=== PATIENT | male | born 1970 | race Caucasian/White ===

== ENCOUNTER 2025-05-03 14:55 | Emergency (ER) | payer OTHER, SELFPAY ==
[2025-05-03 14:57] VITALS: BP 137/86; PULSE 81; RESP 16; TEMP 36.9; O2SAT 94
--- NOTE | 2025-05-03 14:58 | W.ED.GENAD ---
Discharge Plan Disposition Patient Disposition: Home Discharge Details Clinical Impression: Local reaction to hymenoptera sting ED Provider: Song Roth Home Meds and New Rx's Prescriptions: Continued aspirin 325 mg capsule 325 mg PO DAILY Patient Comments: Takes d/t prior stroke 05/03/25 cholecalciferol (vitamin D3) 50 mcg (2,000 unit) capsule 2,000 unit PO DAILY omega 8-awd-uxj-fish oil [Fish Oil] 1,000 (120-180) mg capsule 1 cap PO DAILY mecobalamin (vitamin B12) 2,500 mcg tablet,chewable 2,500 mcg PO DAILY multivitamin [Daily Multi-Vitamin] Tablet 1 tab PO DAILY ascorbic acid (vitamin C) [Vitamin C] 1,000 mg tablet 1 g PO DAILY melatonin 5 mg capsule 5 mg PO QHS rosuvastatin [Crestor] 20 mg tablet 20 mg PO DAILY epinephrine [EpiPen] 0.3 mg/0.3 mL auto-injector 0.3 ml subcut ONCE Patient Comments: Pt states he does not have currently; never picked up script 05/03/25 Rx Instructions: as a single dose; may repeat once diphenhydramine HCl [Benadryl] 25 mg capsule 25 mg PO ONCE Discharge Instructions Additional Instructions: You are seen in the emergency department following your bee stings.You have local site reactions. You received steroids. Please return to the emergency department if you develop shortness of breath nausea vomiting or any significant rash. HPI General Date/Time Provider Initiated Documentation: 05/03/25 14:58. HPI Narrative: MDM This is an overall quite well-appearing normothermic and not tachycardic 54-year-old male with local site reactions to hymenoptera stings for which patient will receive oral prednisone following discussion of risks and benefits. Specifically patient I discussed small risk of GI bleed psychosis and ineffectiveness. He had no airway involvement no posterior oropharynx swelling no nausea nor vomiting no extensive rash to suggest anaphylaxis so no indication for epinephrine. No pain out of proportion to suggest necrotizing soft tissue infection. No significant erythema to suggest cellulitis. No fluctuance to suggest abscess. Patient and I discussed that he should return to the emergency department if he developed any nausea vomiting difficulty breathing or shortness of breath. He does have a prescription for epinephrine. Given that his local site reactions were not consistent with anaphylaxis I did not feel he required another prescription for epinephrine. He understood his return indications and was discharged with an empiric trial of expectant outpatient management. He had also taken 100 mg of diphenhydramine. We discussed that he should take 25 mg of diphenhydramine every 6 hours. 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 He does not appear drowsy. HPI This is a xilfm-lzeu-[id number] patient with multiple bee stings. The patient experienced bee stings on the back of his right knee, palm, and forearm less than an hour ago while lifting a tarp in his backyard. He reports no difficulty in breathing, throat swelling, nausea, or vomiting. The patient is right-handed and does not have diabetes. He has no history of steroid use. He has a history of anaphylaxis to bee stings, with the most recent episode occurring 3 years ago when he was stung on the middle finger, causing significant swelling of his hand. At that time, he did not receive epinephrine but took Benadryl, which alleviated the swelling after a day. Exam General: Well-appearing in no acute distress speaking in complete sentences. Head: Normocephalic, atraumatic. Eye: Extraocular eye movements intact. No conjunctival injection. No scleral icterus. Ear, nose, mouth, throat: Grossly normal inspection. Normal voice, handling secretions normally. Neck: Trachea midline. Cardiovascular: Well-perfused distal extremities. Regular rate and rhythm Respiratory: Nonlabored respiration. Clear lungs bilaterally. No wheezes. Gastrointestinal: Nondistended abdomen. Musculoskeletal: No edema. Moving all 4 extremities spontaneously. Skin: On the palmar aspect of the right hand, ulnar side there is a 4 x 4 centimeter mildly swollen area consistent with recent sting. On the dorsal surface of the proximal forearm there is a second approximately 3 x 3 cm mildly swollen erythematous area. On the posterior aspect of the right knee in the popliteal fossa there is another 4 x 4 centimeter mildly swollen area. Neurologic: Alert and appropriate, no apparent acute deficits. Related Data Home Medications ?Medication ?Instructions ?Recorded ?Confirmed ascorbic acid (vitamin C) 1,000 mg 1 g PO DAILY 05/03/25 05/03/25 tablet (Vitamin C) aspirin 325 mg capsule 325 mg PO DAILY 05/03/25 05/03/25 cholecalciferol (vitamin D3) 50 2,000 unit PO DAILY 05/03/25 05/03/25 mcg (2,000 unit) capsule diphenhydramine HCl 25 mg capsule 25 mg PO ONCE 05/03/25 05/03/25 (Benadryl) epinephrine 0.3 mg/0.3 mL 0.3 ml subcut ONCE 05/03/25 05/03/25 injection, auto-injector (EpiPen) mecobalamin (vitamin B12) 2,500 2,500 mcg PO DAILY 05/03/25 05/03/25 mcg chewable tablet melatonin 5 mg capsule 5 mg PO QHS 05/03/25 05/03/25 multivitamin (Daily Multi-Vitamin 1 tab PO DAILY 05/03/25 05/03/25 tablet) omega 4-twr-syq-fish oil 1,000 mg 1 cap PO DAILY 05/03/25 05/03/25 (120 mg-180 mg) capsule (Fish Oil) rosuvastatin 20 mg tablet (Crestor) 20 mg PO DAILY 05/03/25 05/03/25 Allergies Allergy/AdvReac Type Severity Reaction Status Date / Time bee venom protein (honey bee) Allergy Intermediate Swelling/Ed Verified 05/03/25 15:14 aby PFSH All Active Problems (Updated 05/03/25 @ 15:21 by Song Roth MD) Local reaction to hymenoptera sting (Acute) Social History Smoking/Tobacco Use Status: Never Smoking risk assessment performed?: Yes Alcohol Intake: current Alcohol Intake frequency: a few times a week Drug use: Never Substance use type: does not use Do you feel safe at home: Yes Do you feel safe in your relationship?: Yes
[2025-05-03 15:15] VITALS: PULSE 78; O2SAT 95
[2025-05-03 15:20] VITALS: PULSE 81; O2SAT 96
[2025-05-03 15:30] VITALS: PULSE 76; O2SAT 97
[2025-05-03] MEDS: Dexamethasone 4 MG TAB 10 MG PO (15:32)
== END 2025-05-03 15:35 | disposition home or self-care (01) ==
LOC: ER 15:50
PROVIDERS: Emergency Provider Emergency Medicine
DX: T63.481A Toxic effect of venom of other arthropod, accidental (unintentional), initial encounter (principal); W57.XXXA Bitten or stung by nonvenomous insect and other nonvenomous arthropods, initial encounter; R22.31 Localized swelling, mass and lump, right upper limb; R22.41 Localized swelling, mass and lump, right lower limb
CPT/HCPCS: 99283; 99282; J8540